=== PATIENT | male | born 2000 | race Hispanic/Latino ===

== ENCOUNTER 2018-04-20 10:29 | Emergency (ER) | payer OTHER ==
--- NOTE | 2018-04-20 11:02 | RAD ---
LEFT FOOT THREE VIEWS: History: Pain. Injury on a hydraulic lift. FINDINGS: Lisfranc alignment is maintained. Joint spaces are preserved. No fracture. No cortical irregularity o r periosteal reaction. IMPRESSION: No fracture. POS: C
== END 2018-04-20 11:06 | disposition home or self-care (01) ==
LOC: NAV ERS 10:29
DX: M79.672 Pain in left foot (principal); W24.0XXA Contact with lifting devices, not elsewhere classified, initial encounter
CPT/HCPCS: 99001